=== PATIENT | female | born 1975 | race Caucasian/White ===

== ENCOUNTER 2021-08-28 02:54 | Emergency (ER) | payer OTHER ==
[~2021-08-28] VITALS: Ht 157.5 cm; Wt 81.6 kg
--- NOTE | 2021-08-28 03:10 | NUR ---
TO ER BED 10. BIBS C/O LACERATION ON R ABDOMEN CUT BY A GLASS. WOUND IS OPEN TO AIR, 1 INCH IN LENGTH, NON BLEEDING. SWELLING NOTED. CHANGED INTO GOWN. CONNECTED TO MONITOR, AWAITING MD LOUIS
[2021-08-28] MEDS ORDERED: LIDOCAINE 1%-EPI 1:100,000 20 ML VIAL ONE (04:13)
[2021-08-28] MEDS ORDERED: TDAP [DIPH/PERTUSSIS/TET] 0.5 ML VIAL IM ONE (04:13)
[2021-08-28] MEDS: LIDOCAINE 1%-EPI 1:100,000 50 ML VIAL IJ ONE (04:22)
[2021-08-28] MEDS: TDAP [DIPH/PERTUSSIS/TET] 0.5 ML VIAL IM ONE (04:23)
[2021-08-28 04:38] LABS: BASOPHILS # (AUTO) 0.1 K/uL (0.0-0.2); BASOPHILS % (AUTO) 0.6 % (0.0-2.0); EOSINOPHILS % (AUTO) 1.8 % (0.0-6.0); HEMATOCRIT 29 % (33-45); HEMOGLOBIN 9.8 g/dL (11.5-14.8); LYMPHOCYTES # (AUTO) 1.3 K/uL (0.8-4.8); LYMPHOCYTES % (AUTO) 13.7 % (20.0-44.0); MEAN CORPUSCULAR HGB CONC 33 g/dl (31.0-36.0); MEAN CORPUSCULAR VOLUME 68 fL (82-100); MONOCYTES # (AUTO) 0.9 K/uL (0.1-1.30); MONOCYTES % (AUTO) 9.9 % (2.0-12.0); NEUTROPHILS # (AUTO) 6.9 K/uL (1.8-8.9); PLATELET COUNT (AUTO) 403 K/uL (150-450); WHITE BLOOD COUNT (AUTO) 9.3 K/uL (4.3-11.0)
[2021-08-28 04:47] LABS: CREATININE 0.7 mg/dL (0.6-1.3); POTASSIUM 3.3 mmol/L (3.5-5.1)
--- NOTE | 2021-08-28 05:04 | NUR ---
PT TAKEN FOR CT SCAN
--- NOTE | 2021-08-28 05:14 | NUR ---
PT AMBULATED TO BATHROOM, STEADY GAIT NOTED
[2021-08-28 05:16] LABS: CALCIUM, SERUM 8.8 mg/dL (8.5-10.1)
[2021-08-28] MEDS ORDERED: ACETAMINOPHEN 325 MG TABLET ONE (05:16)
[2021-08-28] MEDS: ACETAMINOPHEN 325 MG TABLET PO ONE (05:18)
--- NOTE | 2021-08-28 05:18 | NUR ---
URINE SAMPLE COLLECTED AND SENT TO LAB
[2021-08-28 05:40] LABS: BILIRUBIN,URINE SMALL (NEGATIVE); COLOR,URINE YELLOW (YELLOW); LEUKOCYTE ESTERASE ,URINE NEGATIVE (NEGATIVE); NITRITE, URINE NEGATIVE (NEGATIVE); PROTEIN,URINE NEGATIVE (NEGATIVE); UGLUCOSE NEGATIVE (NEGATIVE); UROBILINOGEN,URINE 0.2 EU/dL (0.2)
[2021-08-28 05:41] LABS: BILIRUBIN,DIRECT 0.1 mg/dL (0.0-0.2); BILIRUBIN,TOTAL 0.2 mg/dL (0.2-1.0)
[2021-08-28 05:42] LABS: ALBUMIN 3.3 g/dL (3.4-5.0); TOTAL PROTEIN, SERUM 6.5 g/dL (6.4-8.2)
[2021-08-28] MEDS ORDERED: CEPH500C2 PO (08:17)
--- NOTE | 2021-08-28 08:21 | NUR ---
Patient discharged to home in stable condition. Written and verbal after care instructions given. Patient verbalizes understanding of instruction.
[2021-08-28 08:30] VITALS: BP 122/97
== END 2021-08-28 08:31 | disposition home or self-care (01) ==
LOC: ER 02:58
DX: S31.119A Laceration without foreign body of abdominal wall, unspecified quadrant without penetration into peritoneal cavity, initial encounter (principal); I10 Essential (primary) hypertension; E11.9 Type 2 diabetes mellitus without complications; F17.200 Nicotine dependence, unspecified, uncomplicated; Z88.8 Allergy status to other drugs, medicaments and biological substances; W26.8XXA Contact with other sharp object(s), not elsewhere classified, initial encounter; Y93.89 Activity, other specified; Y92.89 Other specified places as the place of occurrence of the external cause; Y99.8 Other external cause status
CPT/HCPCS: 12002; 36415; 74176; 76705; 80048; 80076; 81003; 83690; 85025; 90471; 90715; 93308; 99284; J3490 ×2